=== PATIENT | female | born 1960 | race Caucasian/White ===

== ENCOUNTER 2024-11-22 17:25 | Inpatient (IN) | payer MEDICARE, OTHER ==
[~2024-11-22] VITALS: Ht 162.6 cm; Wt 63.5 kg
[2024-11-22] MEDS ORDERED: [UNRECOGNIZED DRUG - OTHER] IM (17:48)
[2024-11-22] MEDS ORDERED: ARIP5TAB10 PO (17:48)
[2024-11-22] MEDS ORDERED: MIRT-93 PO (17:48)
[2024-11-22] MEDS ORDERED: SUMA100T16 PO (17:48)
[2024-11-22] MEDS ORDERED: METO-357 PO (17:48)
[2024-11-22] MEDS ORDERED: LOSA50TA39 PO (17:48)
[2024-11-22 18:02] LABS: BASOPHILS % (AUTO) 0.5 % (0.0-2.0); EOSINOPHILS % (AUTO) 0.5 % (0.0-7.0); HEMATOCRIT 37.4 % (31.2-41.9); HEMOGLOBIN 12.9 g/dL (10.9-14.3); LYMPHOCYTES % (AUTO) 33.6 % (20.5-51.5); MEAN CORPUSCULAR HEMOGLOBIN 29.5 uug (24.7-32.8); MEAN CORPUSCULAR HGB CONC 34 g/dL (32.3-35.6); MEAN CORPUSCULAR VOLUME 85.7 fL (75.5-95.3); MONOCYTES # (AUTO) 0.5 K/uL (0.1-1.30); MONOCYTES % (AUTO) 5.5 % (0.0-11.0); NEUTROPHILS # (AUTO) 5.4 K/uL (1.8-8.9); NEUTROPHILS % (AUTO) 59.9 % (38.5-71.5); PLATELET COUNT (AUTO) 252 K/uL (179-408); RED BLOOD CELL COUNT(AUTO) 4.36 MIL/uL (3.63-4.92); RED CELL DISTRIBUTION WIDTH 13.9 % (12.3-17.7)
[2024-11-22 18:07] LABS: DIFFERENTIAL COMMENT 1
[2024-11-22 18:11] LABS: CALCIUM 8.7 mg/dL (8.5-10.1); CARBON DIOXIDE 29 mmol/L (21-32); CHLORIDE 104 mmol/L (98-107); CREATININE 0.8 mg/dL (0.6-1.3); GLUCOSE 109 mg/dL (74-106); POTASSIUM 3.2 mmol/L (3.5-5.1); SODIUM SERUM 143 mmol/L (136-145); UREA NITROGEN, BLOOD 13 mg/dL (7-18)
[2024-11-22 18:12] LABS: AMMONIA < 10 umol/L (11-32)
[2024-11-22 18:19] LABS: ACETAMINOPHEN < 2.0 ug/mL (10-30); ALANINE AMINOTRANSFERASE 17 U/L (14-59); ALKALINE PHOSPHATASE 44 U/L (50-136); ASPARTATE AMINOTRANSFERASE 11 U/L (15-37); BILIRUBIN,DIRECT 0.1 mg/dL (0.0-0.2); BILIRUBIN,TOTAL 0.4 mg/dL (0.2-1.0)
[2024-11-22 18:20] LABS: ETHANOL < 3 MG/DL (0-10)
[2024-11-22 18:24] LABS: THYROID STIMULATING HORMONE 3.976 mIU/mL (0.358-3.740)
[2024-11-22] MEDS: PANTOPRAZOLE SODIUM 40 MG VIAL IV SCH (18:45)
[2024-11-22] MEDS ORDERED: ACETAMINOPHEN 325 MG TABLET PO PRN (18:45)
[2024-11-22] MEDS ORDERED: ENOXAPARIN SODIUM 40 MG/0.4 ML DISP.SYRIN SQ SCH (18:45)
[2024-11-22 19:07] LABS: *BILIRUBIN,URIN NEGATIVE (NEGATIVE); *CLARITY,URINE CLEAR (CLEAR); *COLOR,URINE YELLOW (YELLOW); *KETONES,URINE NEGATIVE (NEGATIVE); *PROTEIN,URINE NEGATIVE (NEGATIVE); *UROBILINOGEN,URINE 0.2 E.U./dl (NORMAL); LEUKOCYTE ESTERASE ,URINE NEGATIVE (NEGATIVE); NITRITE, URINE NEGATIVE (NEGATIVE); UGLUCOSE NEGATIVE (NEGATIVE)
[2024-11-22 19:19] LABS: *BLOOD, URINE TRACE (NEGATIVE)
[2024-11-22 19:22] LABS: BACTERIA,URINE NONE SEEN /HPF (NONE SEEN); RBC,URINE 0-3 /HPF (0-3); SQUAMOUS EPITHELIAL CELL,UR FEW /HPF (NONE SEEN); WBC,URINE 0-3 /HPF (0-3)
[2024-11-22 19:28] LABS: *AMPHETAMINE, URINE NEGATIVE (NEGATIVE); *BARBITURATE, URINE NEGATIVE (NEGATIVE); *BENZODIAZEPINE, URINE NEGATIVE (NEGATIVE); *CANNABINOID, URINE NEGATIVE (NEGATIVE); *COCCAINE, URINE NEGATIVE (NEGATIVE); *OPIATE, URINE NEGATIVE (NEGATIVE); *PHENCYCLIDINE SCREEN,URINE NEGATIVE (NEGATIVE); FENTANYL, URINE NEGATIVE (NEGATIVE)
[2024-11-22] MEDS: IV NS 1000 ML 1,000 ML IV PRN (21:37)
[2024-11-23] MEDS ORDERED: ONDANSETRON 4 MG/2 ML VIAL ONE (01:03)
[2024-11-23] MEDS: ONDANSETRON 4 MG/2 ML VIAL IV PRN (01:04)
[2024-11-23 05:18] LABS: BASOPHILS % (AUTO) 0.3 % (0.0-2.0); HEMATOCRIT 37.7 % (31.2-41.9); HEMOGLOBIN 12.6 g/dL (10.9-14.3); LYMPHOCYTES % (AUTO) 23.6 % (20.5-51.5); MEAN CORPUSCULAR HEMOGLOBIN 29.2 uug (24.7-32.8); MEAN CORPUSCULAR HGB CONC 34 g/dL (32.3-35.6); MEAN CORPUSCULAR VOLUME 87.2 fL (75.5-95.3); MONOCYTES # (AUTO) 0.4 K/uL (0.1-1.30); MONOCYTES % (AUTO) 4.9 % (0.0-11.0); NEUTROPHILS % (AUTO) 71.2 % (38.5-71.5); PLATELET COUNT (AUTO) 216 K/uL (179-408); RED BLOOD CELL COUNT(AUTO) 4.33 MIL/uL (3.63-4.92); RED CELL DISTRIBUTION WIDTH 13.8 % (12.3-17.7); WHITE BLOOD COUNT (AUTO) 8.4 K/uL (3.8-11.8)
[2024-11-23 05:36] LABS: CALCIUM 8.8 mg/dL (8.5-10.1); CREATININE 0.7 mg/dL (0.6-1.3)
[2024-11-23] MEDS ORDERED: ENOXAPARIN SODIUM 40 MG/0.4 ML DISP.SYRIN SQ ONE (07:20)
[2024-11-23] MEDS ORDERED: PANTOPRAZOLE SODIUM 40 MG VIAL ONE (07:20)
[2024-11-23] MEDS: ENOXAPARIN SODIUM 40 MG/0.4 ML DISP.SYRIN SQ SCH (07:24)
[2024-11-23 08:34] VITALS: BP 116/52; TEMP 98.2; O2SAT 98
[2024-11-23 09:00] VITALS: BP 134/64; O2SAT 98
[2024-11-23] MEDS ORDERED: METF-440 PO (10:56)
[2024-11-23] MEDS ORDERED: MEMA5TAB42 PO (10:56)
[2024-11-23] MEDS ORDERED: DULO60CA45 PO (10:56)
[2024-11-23 11:17] VITALS: BP 134/68; O2SAT 99
[2024-11-23 15:51] VITALS: BP 116/90; TEMP 98; O2SAT 99
[2024-11-23 18:24] VITALS: BP 116/90; TEMP 98; O2SAT 99
== END 2024-11-23 18:34 | disposition left against medical advice (07) | DRG 918 ==
LOC: ER 17:25 → TRANSITION 11-23 07:54
PROVIDERS: ADMIT Nurse Practitioner Acute Care; ATTEND Nurse Practitioner Acute Care
DX: T43.592A Poisoning by other antipsychotics and neuroleptics, intentional self-harm, initial encounter (principal); T43.022A Poisoning by tetracyclic antidepressants, intentional self-harm, initial encounter; T46.5X2A Poisoning by other antihypertensive drugs, intentional self-harm, initial encounter; T44.7X2A Poisoning by beta-adrenoreceptor antagonists, intentional self-harm, initial encounter; T39.8X2A Poisoning by other nonopioid analgesics and antipyretics, not elsewhere classified, intentional self-harm, initial encounter; E87.6 Hypokalemia; Y92.099 Unspecified place in other non-institutional residence as the place of occurrence of the external cause; E03.9 Hypothyroidism, unspecified; I10 Essential (primary) hypertension; R40.4 Transient alteration of awareness; F32.9 Major depressive disorder, single episode, unspecified; G43.909 Migraine, unspecified, not intractable, without status migrainosus
CPT/HCPCS: 36415; 70450; 71045; 83735; 84100; 84443; 84484; 85025; 85730; G0378; G0480; J1650; J2405; J2470; J7040